=== PATIENT | female | born 1935 | race Caucasian/White ===

== ENCOUNTER 2024-06-14 18:17 | Inpatient (IN) | payer MEDICARE, SELFPAY ==
[2024-06-14 19:22] VITALS: BMI 17.0
[2024-06-14 19:29] VITALS: BP 181/85; PULSE 84; RESP 15; TEMP 36.9; O2SAT 98
--- NOTE | 2024-06-14 19:44 | NURSING ---
per patient no known allergies. Patient presents as alert to person/place/time/situation. Code status discussed with second nurse present. Educated on different code status orders. Patient requests code status DNRCC.
--- NOTE | 2024-06-14 19:50 | NURSING ---
Patient unable to recall vaccinations, would like to receive flu vaccine but I can't remember if I got it this year or not, my and I have been so sick. Patient expresses that she lives at home with her spouse that is worse off then me, they say we need to go to a home. Patient expresses patient and spouse experiencing difficulty taking care of ourselves at home. Patient notified that social work to be notified of her concerns, patient expresses thanks, states we don't know what to do to get help with that. Confidential voicemail left for social service coordinator regarding patient concern. Nursing communication in place for PCP to be contacted for vaccination records.
--- NOTE | 2024-06-14 20:53 | HP.PCM_ITS ---
HPI - General General Date of Admission: 06/14/24 Date of Service: 06/15/24 Chief Complaint: Here for rehabilitation. HPI Narrative KATELYN RYDER, is a 88 Female who presents with followin06/11/2024 Admit to [facility]. CT showed right pelvis fracture, sacral ala fracture. At baseline, walks with walker, right hip pain after fall. Able to walk through triage. No head injury, no LOC. 06/12/2024 Orthopedics recommended WBAT, no surgery. Pain control, dischage to SNF. PT/OT for SNF. 06/14/2024 Replace Vitamin D. Treat E. Coli UTI with Keflex. 06/14/2024 Admit to TCU with debility, here for rehabilitation, strengthening, prior to discharge home alone. Resident confused. [facility] Medical History (Updated 06/14/24 @ 20:[address] Nakul Chow MD) Essential (primary) hypertension Neuropathy Parkinson disease Neurofibromatosis Vitamin D deficiency Urinary tract infection Sacral fracture Pelvis fracture, right Debility Home Medications ?Medication ?Instructions ?Recorded ?Last Taken ?Type acetaminophen 325 mg capsule 650 mg PO Q6H PRN pain 1- 4 06/14/24 Unknown History amantadine HCl 100 mg capsule 100 mg PO BID Parkinsons 06/14/24 Unknown History carbidopa 25 mg-levodopa 100 mg 2.5 tab PO 0700,1100,1 500,1900 06/14/24 Unknown History tablet Parkinsons carbidopa ER 50 mg-levodopa 200 mg 1 tab PO QHS Praveen sons 06/14/24 Unknown History tablet,extended release cephalexin 250 mg capsule 250 mg PO Q12H Antibiotic Unknown History cholecalciferol (vitamin D3) 1,250 1,250 mcg PO QWEEK Supplement 06/14/24 Unknown History mcg (50,000 unit) capsule losartan 25 mg tablet 25 mg PO DAILY BP 06/14/24 U nknown History magnesium hydroxide 400 mg/5 mL 30 ml PO DAILY Supplem ent 06/14/24 Unknown History oral suspension oxycodone 5 mg tablet 5 mg PO Q4H PRN Pain 5-10 Unknown History polyethylene glycol 3350 17 17 g PO DAILY Constipation 06/14/24 Unknown History gram/dose oral powder (Miralax) Allergy/AdvReac Type Severity Reaction Status Date / Time No Known Allergies Allergy Verified 06/14/24 19:44 Surgical History (Updated 06/14/24 @ 20:[address] Nakul Chow MD) History of open reduction and internal fixation (ORIF) procedure Social History (Updated 06/14/24 @ 20:[address] Nakul Chow MD) household members: none Smoking Status: Never smoker alcohol intake: never substance use type: does not use ROS Constitutional Constitutional: Reports weakness; Denies chills, fever(s) or weight gain ENT HEENT: Denies headache(s), nasal congestion or nasal discharge Cardiovascular Cardiovascular: Denies chest pain or palpitations Respiratory/Chest Respiratory/Chest: Denies cough, excessive phlegm production or shortness of breath with exertion Gastrointestinal Gastrointestinal: Denies abdominal pain, nausea or vomiting Genitourinary Genitourinary: Denies dysuria Musculoskeletal Musculoskeletal: Denies joint pain or joint swelling Integumentary Integumentary: Denies rash or wounds Neurologic Neurologic: Denies focal weakness, numbness or tingling Psychiatric Psychiatric: Denies anxiety, auditory hallucinations, depression, homicidal ideation or suicidal ideation Vital Signs Vital Signs Vital Signs: 06/14/24 19:29 Temperature 98.5 F Temperature Source Temporal Pulse Rate 84 Respiratory Rate 15 Blood Pressure 181/85 H Blood Pressure Mean 117 Blood Pressure Source Monitor Blood Pressure Position Semi-Fowlers Blood Pressure Location Left Arm Pulse Ox 98 Oxygen Delivery Method Room Air Physical Exam Const alert General Appearance: cooperative HEENT normocephalic Eyes PERRL and EOMs intact bilaterally Neck supple, no JVD and no carotid bruits Resp normal respiratory effort, normal air movement and clear to auscultation bilaterally Cardio regular rate and regular rhythm GI normal to inspection, nondistended, normoactive bowel sounds, non-tender and non-distended Extremity normal capillary refill General Extremity: Negative for edema Skin no rashes or lesions noted General Skin Exam: no breakdown Psych affect normal Appearance: appropriate Results Lab / Micro Data 06/15/24 05:20 06/15/24 05:20 Assessment & Plan Assessment/Plan (1) Debility: (2) Pelvis fracture, right: (3) Sacral fracture: (4) Urinary tract infection: (5) Vitamin D deficiency: (6) Neurofibromatosis: (7) Parkinson disease: (8) Neuropathy: (9) Essential (primary) hypertension: PLAN: Plan 88 year old female with below past medical history hospitalized for right pelvis fracture, sacral ala fracture, treated non-surgically, complicated by E. Coli UTI, Vitamin D deficiency, admitted to TCU with debility, here for rehabilitation, strengthening, prior to discharge home alone. * Debility - PT/OT. * Cognition - ST. * Pain - Tylenol 1000mg q8, Oxycodone 5mg q4 prn pain (5-10). * Bowel - Miralax 17gm daily, senna/colace 1 tablet bid, MOM 30mL daily thru 06/18/2024. * Adult immunization - Administer pneumonia vaccine, covid vaccine, flu vaccine as appropriate. * DVT prophylaxis - Lovenox 30mg sc daily. * Parkinson Disease - Amantadine 100mg bid, Sinemet 25/100mg 2.5 tablets 4x/day, Sinemet 50/200mg 1 tablet qhs. Resident confused, consider Lewy body disease. * E. Coli UTI - Keflex 250mg po q12 thru 06/21/2024. * Vitamin D deficiency - D 1.25mg per week thru 07/31/2024. * Hypertension - Losartan 25mg daily.
[2024-06-14] MEDS: CARBIDOPA/LEVODOPA CR 50/200 Tablet PO (21:38)
[2024-06-14] MEDS: Cephalexin 250 MG Capsule PO (21:38)
[2024-06-14] MEDS: Amantadine 100 MG Capsule PO (21:38)
[2024-06-14] MEDS: oxyCODONE 5 MG Tablet PO (21:38)
[2024-06-14 21:40] VITALS: BP 200/104
--- NOTE | 2024-06-14 21:46 | NURSING ---
Addendum entered by Shirley Rocha 06/15/24 00:13: 2330 BP recheck 150/80 heart rate 90. Provider notified and okay with current BP, no new orders at this time. Original Note: Patient's BP 190/101 in the right arm, automatic cuff, left arm 205/106 automatic cuff. Manual BP in left arm 200/104, pulse 88. Patient is asymptomatic. Dr. Chow notified via phone. New order to give 100mg losartan now and change daily dose from 25mg to 100mg daily. Recheck BP in one hour. TIFFANY.
[2024-06-14] MEDS: Losartan Potassium 100 MG Tablet PO (22:27)
[2024-06-14] MEDS: Acetaminophen 500 MG Tablet 1000 MG PO (22:29)
[2024-06-14 23:30] VITALS: BP 150/80; PULSE 90
[2024-06-15] MEDS: Carbidopa/Levodopa 25/100 Tablet PO ×4 (06:15→18:28)
[2024-06-15] MEDS: Acetaminophen 500 MG Tablet 1000 MG PO ×3 (06:15→22:18)
[2024-06-15 06:20] VITALS: BP 138/54; PULSE 87
[2024-06-15 07:29] LABS: Absolute Lymphocyte Count 0.97 X10^3/uL (0.83-4.51); Absolute Neutrophil Count 4.8 X10^3/uL (2.0-7.7); Basophil# 0.02 X10^3/uL; Basophil% 0.3 % (0-1); Eosinophil# 0.09 X10^3/uL; Eosinophils% 1.3 % (0-5); Hematocrit 39.1 % (37-47); Hemoglobin 12.5 g/dL (12.0-15.0); Lymphocyte # 0.97 X10^3/ul (0.83-4.51); Lymphocyte % 14.4 % (19-41); Mean Corpuscular Hgb 29.1 pg (27.0-32.0); Mean Corpuscular Volume 90.9 fL (81-99); Mean Platelet Vol. 10.6 fl (6.2-12.0); Monocyte# 0.81 X10^3/uL; NRBC Flagged by Analyzer 0 % (0-5); Neutrophil # 4.81 X10^3/uL (2.7-7.7); Neutrophil % 71.4 % (47-70); Platelet Count 198 K/mm3 (150-450); RBC Distribution Width CV 13.9 % (11.6-14.6); RBC Distribution Width SD 46.2 fl (35.1-43.9); White Blood Count 6.7 K/mm3 (4.4-11.0)
[2024-06-15 08:01] LABS: Anion Gap 6 (5-15); BUN 24 mg/dL (7-18); BUN/Creat Ratio 35.2 RATIO (10-20); Calcium,Total 8.9 mg/dL (8.5-10.1); Chloride 106 mmol/L (98-107); Creatinine, Serum 0.68 mg/dL (0.55-1.02); EST Glomerular Filtration Rate 87 mL/min (>60); Est Glom Filt Rate - Afr Amer 105 mL/min (>60); Glucose 83 mg/dL (74-106); Potassium 4.2 mmol/L (3.5-5.1); Sodium Level 138 mmol/L (136-145)
[2024-06-15 09:26] VITALS: BP 126/62; PULSE 81; RESP 16; TEMP 36.8; O2SAT 96
[2024-06-15] MEDS: Amantadine 100 MG Capsule PO ×2 (09:26→22:18)
[2024-06-15] MEDS: Losartan Potassium 100 MG Tablet PO (09:27)
[2024-06-15] MEDS: Cephalexin 250 MG Capsule PO ×2 (09:27→22:17)
[2024-06-15] MEDS: Polyethylene Glycol 3350 17 GM PACKET PO (09:27)
[2024-06-15] MEDS: Senna/Docusate Sodium 1 Tablet PO ×2 (09:27→22:17)
[2024-06-15] MEDS: Tuberculin,Purif.prot.deriv. 50 TU/ML Vial 0.1 ML ID (12:26)
[2024-06-15] MEDS: oxyCODONE 5 MG Tablet PO (13:33)
--- NOTE | 2024-06-15 14:14 | PHA.CONS_ITS ---
Documented by User: Kalpesh Carmona 06/15/24 14:24 TCU RX Drug Regimen Review Subjective/Objective Subjective/Objective Subjective: TCU admission note. 88 year old female with below past medical history hospitalized for right pelvis fracture, sacral ala fracture, treated non-surgically, complicated by E. Coli UTI, Vitamin D deficiency, admitted to TCU with debility, here for rehabilitation, strengthening, prior to discharge home alone. Objective: Allergies No Known Allergies Allergy (Verified 06/14/24 19:44) Current Medications Generic Name Dose Route Start Last Admin Trade Name Freq PRN Reason Stop Dose Admin Acetaminophen 1,000 mg 06/14/24 22:00 06/15/24 13:33 Acetaminophen 500 Mg Tablet PO 1,000 mg Q8 NAREN Administration Amantadine HCl 100 mg 06/14/24 22:00 06/15/24 09:26 Amantadine 100 Mg Capsule PO 100 mg BID NAREN Administration Carbidopa/Levodopa 1 tablet 06/14/24 22:00 06/14/24 21:38 Carbidopa/Levodopa Cr 50/200 Tablet PO 1 tablet QHS NAREN Administration Carbidopa/Levodopa 2.5 tablet 06/15/24 07:00 06/15/24 11:56 Carbidopa/Levodopa 25/100 Tablet PO 2.5 tablet 0700,1100,1500,1900 NAREN Administration Cephalexin 250 mg 06/14/24 22:00 06/15/24 09:27 Cephalexin 250 Mg Capsule PO 06/21/24 22:01 250 mg Q12 NAREN Administration Ergocalciferol 1.25 mg 06/19/24 19:02 Ergocalciferol 1.25 Mg (50, 000 Unit) Capsule PO 07/31/24 19:03 MO NAREN Losartan Potassium 100 mg 06/14/24 22:00 06/15/24 09:27 Losartan Potassium 100 Mg Tablet PO 100 mg DAILY NAREN Administration Protocol Magnesium Hydroxide 30 ml 06/15/24 10:00 06/15/24 09:27 Magnesium Hydroxide 30 Ml Udc PO 06/18/24 10:01 Not Given DAILY NAREN Oxycodone HCl 5 mg 06/14/24 19:02 06/15/24 13:33 Oxycodone 5 Mg Tablet PO 5 mg Q4H PRN Administration Pain 5-10 Polyethylene Glycol 17 gm 06/15/24 10:00 06/15/24 09:27 Polyethylene Glycol 3350 17 Gm Packet PO 17 gm DAILY NAREN Administration Senna/Docusate Sodium 1 tablet 06/14/24 22:00 06/15/24 09:27 Senna/Docusate Sodium 1 Tablet PO 1 tablet BID NAREN Administration Sodium Chloride 10 - 40 ml 06/14/24 19:46 0.9% Saline Lock 10 Ml Syringe IV UD PRN SALINE FLUSH Tuberculin PPD 0.1 ml 06/22/24 10:00 Tuberculin,Purif.Prot.Deriv. 50 Tu/Ml Vial ID 06/22/24 10:01 X1 ONE Problem List Essential (primary) hypertension (Acute) Neuropathy (Acute) Parkinson disease (Acute) Neurofibromatosis (Acute) Vitamin D deficiency (Acute) Urinary tract infection (Acute) Sacral fracture (Acute) Pelvis fracture, right (Acute) Debility (Acute) Vital Signs Temp Pulse Resp BP Pulse Ox O2 Del Method 98.2 F 81 16 126/62 H 96 Room Air 06/15/24 09:26 06/15/24 09:26 06/15/24 09:26 06/15/24 09:26 06/15/24 09:26 06/15/24 09:26 Oxygen Delivery Method Room Air Weight: 53.887 kg Sodium 138 mmol/L (136-145) 06/15/24 05:20 Potassium 4.2 mmol/L (3.5-5.1) 06/15/24 05:20 Chloride 106 mmol/L (98-107) 06/15/24 05:20 Carbon Dioxide 26.0 mmol/L (21.0-32.0) 06/15/24 05:20 Anion Gap 6 (5-15) 06/15/24 05:20 BUN 24 mg/dL (7-18) H 06/15/24 05:20 Creatinine 0.68 mg/dL (0.55-1.02) 06/15/24 05:20 Est GFR (MDRD) Af Amer 105 mL/min (>60) 06/15/24 05:20 Est GFR (MDRD) Non-Af 87 mL/min (>60) 06/15/24 05:20 BUN/Creatinine Ratio 35.2 RATIO (10-20) H 06/15/24 05:20 Glucose 83 mg/dL (74-106) 06/15/24 05:20 Assessment/Plan: 1. Pain: acetaminophen 1000 mg PO Q8H, oxycodone 5 mg PO Q4H PRN pain (5-10). The patient has used 2 doses of PRN oxycodone so far this admission. Please con tinue to monitor pain levels, PRN medication usage, LFTs (no recent LFTs available), for constipation, respiratory depression, dizziness/drowsiness, syncope/ataxia/falls. 2. Bowel: polyethylene glycol 17 grams PO daily, senna/docusate 1 tablet PO BID magnesium hydroxide 30 mL PO daily through 06/18/24. Please continue to monitor for bowel movements (last BM on 06/15/24), constipation, and diarrhea. 3. Parkinsons disease: amantadine 100 mg PO BID, sinemet 25/100 2.5 tablets PO 4x/day, sinemet 50/200 1 tablet PO QHS. Please continue to monitor movements, for s/s of orthostasis, edema, dry mouth, dizziness, and falling. 4. E coli UTI: cephalexin 250 mg PO Q12 through 06/21/24. Please continue to monitor for s/s of a UTI, WBC counts (WBC = 6.7 K/mm3 on 06/15/24), and fever (last temp = 98.2 F on 06/15/24), and for diarrhea. 5. Hypertension: losartan 100 mg PO daily. Please continue to monitor blood pressures (recent range = 126-200/54-104 mmHg), renal function (creatinine = 0.68 mg/dL with creatinine clearance ~ 105 mL/min on 06/15/24), potassium levels (K = 4.2 mmol/L on 06/15/24), sodium levels (Na = 138 mmol/L on 06/15/24). 6. Vitamin D deficiency: ergocalciferol 1.25 mg PO weekly through 07/31/24. Please continue to monitor for s/s of vitamin D deficiency as well as vitamin D levels (no recent vitamin D levels documented). Assessment/Plan for indications treated with psychotropic medications: NA Medical chart and medication regimen reviewed. The following medication irregularities or issues were identified: NA Date Date of Note: 06/15/24 Documented by User: Dr. Nakul Chow MD 06/15/24 14:24 TCU RX Drug Regimen Review Provider Comments Provider responsibility Provider Comments to Recommendations by Pharmacy Agree
--- NOTE | 2024-06-15 16:18 | CASEMGMT ---
Social Work SW met with patient to complete initial assessment. Introduced self and role. Verified/updated contacts. Patient confirmed DNR-CC as code status. SW requested family provide copies of pt's advanced directives. Pt states HCPOA is son, Austin. SW educated to [employer] insurance with NRD 2/3 and continued stay is not guaranteed with each review. Pt shared her is recovering from a broken hip, has multiple falls and son stays overnight to assist . SW inquired about safety for pt and to be living at home. Pt aware it is not safe and would like LTC. Pt states they cannot afford [place]. SW to assist and offered to contact son to coordinate. Pt agreeable. SW will continue to follow for DC planning assistance. - SW left VM with son. Will continue to follow. Joan Martinez HARP MAKER MARBLE INSTALLATION HELPER
[2024-06-15] MEDS: CARBIDOPA/LEVODOPA CR 50/200 Tablet PO (22:18)
[2024-06-16] MEDS: Carbidopa/Levodopa 25/100 Tablet PO ×4 (06:11→18:57)
[2024-06-16] MEDS: Acetaminophen 500 MG Tablet 1000 MG PO ×3 (06:11→21:02)
[2024-06-16 08:39] VITALS: BP 151/65; PULSE 87; RESP 16; TEMP 37.3; O2SAT 96
[2024-06-16] MEDS: Losartan Potassium 100 MG Tablet PO (08:42)
[2024-06-16] MEDS: Cephalexin 250 MG Capsule PO ×2 (08:42→21:02)
[2024-06-16] MEDS: Senna/Docusate Sodium 1 Tablet PO (08:43)
[2024-06-16] MEDS: Polyethylene Glycol 3350 17 GM PACKET PO (08:43)
[2024-06-16] MEDS: Amantadine 100 MG Capsule PO ×2 (08:43→21:02)
--- NOTE | 2024-06-16 12:42 | NURSING ---
Training Specialist Note; Activity Asset: Eileen Hess is independent in her choice of daily activities w/reminders. She has word puzzles, magazines and will watch tv in her room. Her family will visit and she welcomes visits from the marketing communications assistant and nursing home social worker. Staff will encourage social activities, remind her of weekly activities and respect her right to say no.
[2024-06-16] MEDS: CARBIDOPA/LEVODOPA CR 50/200 Tablet PO (21:02)
[2024-06-17] VITALS (8 sets, daily range): BP systolic 143–176; BP diastolic 71–92; PULSE 68–81; RESP 16–17; TEMP 36.9; O2SAT 97–100
[2024-06-17] MEDS: Carbidopa/Levodopa 25/100 Tablet PO ×4 (06:37→18:22)
[2024-06-17] MEDS: Acetaminophen 500 MG Tablet 1000 MG PO ×3 (06:39→21:30)
[2024-06-17] MEDS: Amantadine 100 MG Capsule PO ×2 (08:00→21:26)
[2024-06-17] MEDS: Senna/Docusate Sodium 1 Tablet PO ×2 (08:00→21:26)
[2024-06-17] MEDS: Polyethylene Glycol 3350 17 GM PACKET PO (08:00)
[2024-06-17] MEDS: Losartan Potassium 100 MG Tablet PO (08:01)
[2024-06-17] MEDS: Cephalexin 250 MG Capsule PO ×2 (08:01→21:30)
--- NOTE | 2024-06-17 11:20 | NURSING ---
DR LINARES UPDATED ON ELEVATED BP'S NEW ORDER METOPROLOL 25MG BID
[2024-06-17] MEDS: Metoprolol Tartrate 25 MG Tablet PO ×2 (11:54→21:30)
[2024-06-17] MEDS: CARBIDOPA/LEVODOPA CR 50/200 Tablet PO (21:30)
[2024-06-18] MEDS: Carbidopa/Levodopa 25/100 Tablet PO ×4 (06:09→18:40)
[2024-06-18] MEDS: Acetaminophen 500 MG Tablet 1000 MG PO ×3 (06:09→20:54)
[2024-06-18 06:22] VITALS: PULSE 71; RESP 18; O2SAT 98
[2024-06-18] MEDS: Losartan Potassium 100 MG Tablet PO (10:04)
[2024-06-18] MEDS: Senna/Docusate Sodium 1 Tablet PO ×2 (10:04→20:55)
[2024-06-18] MEDS: Polyethylene Glycol 3350 17 GM PACKET PO (10:04)
[2024-06-18] MEDS: Cephalexin 250 MG Capsule PO ×2 (10:04→20:54)
[2024-06-18] MEDS: Menthol/Lanolin/Calamine/Znox 113 GM Tube 1 APPLIC TOPICAL ×2 (10:04→21:02)
[2024-06-18] MEDS: Amantadine 100 MG Capsule PO ×2 (10:04→20:55)
[2024-06-18 10:05] VITALS: PULSE 71
[2024-06-18] MEDS: Metoprolol Tartrate 25 MG Tablet PO ×2 (10:05→20:56)
[2024-06-18 11:16] VITALS: BP 119/70; PULSE 71; RESP 16; TEMP 36.7; O2SAT 99
[2024-06-18 13:14] VITALS: BP 190/95
[2024-06-18 20:56] VITALS: BP 146/69; PULSE 73
[2024-06-18] MEDS: CARBIDOPA/LEVODOPA CR 50/200 Tablet PO (20:56)
[2024-06-19] MEDS: Carbidopa/Levodopa 25/100 Tablet PO ×4 (06:19→18:15)
[2024-06-19] MEDS: Acetaminophen 500 MG Tablet 1000 MG PO ×3 (06:19→20:43)
[2024-06-19 08:03] VITALS: BP 155/77; PULSE 66; RESP 16; TEMP 36.4; O2SAT 95
[2024-06-19 08:05] VITALS: PULSE 66
[2024-06-19] MEDS: Metoprolol Tartrate 25 MG Tablet PO ×2 (08:05→20:42)
[2024-06-19] MEDS: Losartan Potassium 100 MG Tablet PO (08:06)
[2024-06-19] MEDS: Amantadine 100 MG Capsule PO ×2 (08:06→20:43)
[2024-06-19] MEDS: Cephalexin 250 MG Capsule PO ×2 (08:06→20:42)
[2024-06-19] MEDS: Senna/Docusate Sodium 1 Tablet PO ×2 (08:06→20:42)
[2024-06-19] MEDS: Polyethylene Glycol 3350 17 GM PACKET PO (08:06)
[2024-06-19] MEDS: Menthol/Lanolin/Calamine/Znox 113 GM Tube 1 APPLIC TOPICAL ×2 (08:16→20:49)
[2024-06-19 10:00] VITALS: PULSE 89; RESP 16; O2SAT 98
[2024-06-19] MEDS: oxyCODONE 5 MG Tablet PO (11:01)
--- NOTE | 2024-06-19 11:18 | NURSING ---
MESSAGE LEFT WITH PT PCP REGARDING INFLUENZA VACCINE DATES, AWAITING RETURN CALL.
--- NOTE | 2024-06-19 12:04 | NURSING ---
Offered covid vaccine, VIS provided. Resident refuses at this time.
[2024-06-19] MEDS: Ergocalciferol 1.25 MG (50, 000 UNIT) Capsule PO (18:15)
[2024-06-19] MEDS: CARBIDOPA/LEVODOPA CR 50/200 Tablet PO (20:41)
[2024-06-19 20:42] VITALS: BP 170/90; PULSE 72
[2024-06-19 20:46] VITALS: BP 170/90; PULSE 72
[2024-06-20] MEDS: Carbidopa/Levodopa 25/100 Tablet PO ×4 (06:45→18:22)
[2024-06-20] MEDS: Acetaminophen 500 MG Tablet 1000 MG PO ×3 (06:45→20:27)
[2024-06-20] MEDS: oxyCODONE 5 MG Tablet PO (06:51)
[2024-06-20 08:08] VITALS: BP 163/75; PULSE 68; RESP 18; TEMP 36.1; O2SAT 97
[2024-06-20] MEDS: Losartan Potassium 100 MG Tablet PO (08:08)
[2024-06-20] MEDS: Polyethylene Glycol 3350 17 GM PACKET PO (08:08)
[2024-06-20] MEDS: Senna/Docusate Sodium 1 Tablet PO ×2 (08:08→20:26)
[2024-06-20] MEDS: Metoprolol Tartrate 25 MG Tablet PO ×2 (08:08→20:26)
[2024-06-20] MEDS: Amantadine 100 MG Capsule PO ×2 (08:08→20:27)
[2024-06-20] MEDS: Cephalexin 250 MG Capsule PO ×2 (08:08→20:25)
[2024-06-20] MEDS: Menthol/Lanolin/Calamine/Znox 113 GM Tube 1 APPLIC TOPICAL ×2 (08:09→20:30)
[2024-06-20 10:00] VITALS: BMI 16.9
--- NOTE | 2024-06-20 16:17 | CASEMGMT ---
Social Work SW completed BIMS (01/29) and PHQ-2 () for MDS assessment. Joan Martinez HEDDLER TIER BARK PEELER
[2024-06-20 20:26] VITALS: BP 125/54; PULSE 65
[2024-06-20] MEDS: CARBIDOPA/LEVODOPA CR 50/200 Tablet PO (20:26)
[2024-06-20 20:33] VITALS: PULSE 65; RESP 16
[2024-06-21] MEDS: Acetaminophen 500 MG Tablet 1000 MG PO ×3 (06:39→21:11)
[2024-06-21] MEDS: Carbidopa/Levodopa 25/100 Tablet PO ×4 (06:39→18:18)
--- NOTE | 2024-06-21 08:07 | NURSING ---
Hotel Housekeeper Note; MDS for 06/21/2024 Complete
[2024-06-21 09:06] VITALS: BP 131/62; PULSE 65; RESP 17; TEMP 36.6; O2SAT 95
[2024-06-21] MEDS: Cephalexin 250 MG Capsule PO ×2 (09:09→21:11)
[2024-06-21] MEDS: Losartan Potassium 100 MG Tablet PO (09:09)
[2024-06-21 09:10] VITALS: PULSE 65
[2024-06-21] MEDS: Polyethylene Glycol 3350 17 GM PACKET PO (09:10)
[2024-06-21] MEDS: Metoprolol Tartrate 25 MG Tablet PO ×2 (09:10→21:11)
[2024-06-21] MEDS: Amantadine 100 MG Capsule PO ×2 (09:10→21:11)
[2024-06-21] MEDS: Menthol/Lanolin/Calamine/Znox 113 GM Tube 1 APPLIC TOPICAL ×2 (10:22→21:15)
--- NOTE | 2024-06-21 12:24 | CASEMGMT ---
Addendum entered by Joan Martinez 06/21/24 13:21: Advanced directives brought by the son and placed in chart. Original Note: Social Work SW met with patient for care plan meeting. VM left with son and dtr to participate. [place] through the meeting, the DIL did return phone call and staff provided dtr with updates with PT/OT/ST/SN. Explained pt is x1-2 assist with tasks. Offered family therapy training. SW educated to [facility] insurance with NRD 06/23 and continued stay is not guaranteed. Provided pt with written communication on insurance process and copay coverage during stay. SW verified contact information for son. Requested family provided copies of advanced directives. Inquired about plans for SNF at [place] and for to move into SNF with pt. MARLON explained the pt and will move into [facility], and son, Manan, is signing contracts there today. ALLEY noted this worker contacted son upon admission and has not received a return call, and was unaware of the plan for D[place]. ALLEY educated this worker's role is to assist with DC planning and to the referral process. MARLON apologized as she was under the assumption Dora had contacted this worker. ALLEY denied, but will contact [facility] to coordinate DC. SW reiterated the insurance only provides a 3-day notice for DC date, and suggested to begin moving items into pt's apt to be ready for DC. MARLON confirmed. - ALLEY updated contact information in [employer]. Phoned Merlin, Records Associate at [facility]. Discussed pt discharging to [place]. Merlin confirmed and apologized for miscommunication as he was under the impression the family was in contact with this worker. ALLEY denied and requested any onsite or referral information be discussed with this worker prior. Merlin agreed and exchanged contact information. Merlin agreed to clinical information. SW to send via secure email and updated him to insurance process and notice. Merlin stated family is arranging furniture to be delivered next week and will start moving in other items. ALLEY appreciative. Clinical information sent. Will continue to follow. Joan Martinez, RADHA PEREZW
[2024-06-21] MEDS: FLU VACCINE **HIGH DOSE** TV 24-25 180 MCG/0.5 ML SYRINGE IM (16:43)
[2024-06-21 21:11] VITALS: BP 149/76; PULSE 67
[2024-06-21] MEDS: Senna/Docusate Sodium 1 Tablet PO (21:11)
[2024-06-21] MEDS: CARBIDOPA/LEVODOPA CR 50/200 Tablet PO (21:11)
[2024-06-22 06:24] LABS: Absolute Lymphocyte Count 1.17 X10^3/uL (0.83-4.51); Absolute Neutrophil Count 4.3 X10^3/uL (2.0-7.7); Basophil# 0.03 X10^3/uL; Basophil% 0.5 % (0-1); Eosinophils% 1.6 % (0-5); Hematocrit 40.6 % (37-47); Hemoglobin 13.2 g/dL (12.0-15.0); Lymphocyte # 1.17 X10^3/ul (0.83-4.51); Lymphocyte % 18.6 % (19-41); Mean Corp Hgb Conc 32.5 g/dL (32-36); Mean Corpuscular Hgb 29.6 pg (27.0-32.0); Mean Platelet Vol. 10.1 fl (6.2-12.0); Monocyte# 0.65 X10^3/uL; Monocyte% 10.3 % (0-10); NRBC Flagged by Analyzer 0 % (0-5); Neutrophil # 4.29 X10^3/uL (2.7-7.7); Platelet Count 295 K/mm3 (150-450); RBC Distribution Width CV 13.8 % (11.6-14.6); RBC Distribution Width SD 45.9 fl (35.1-43.9); Red Blood Count 4.46 M/mm3 (4.2-5.4); White Blood Count 6.3 K/mm3 (4.4-11.0)
[2024-06-22 06:53] LABS: Anion Gap 5 (5-15); BUN 28 mg/dL (7-18); BUN/Creat Ratio 42.9 RATIO (10-20); Chloride 105 mmol/L (98-107); Creatinine, Serum 0.65 mg/dL (0.55-1.02); EST Glomerular Filtration Rate 91 mL/min (>60); Est Glom Filt Rate - Afr Amer 110 mL/min (>60); Estimated Creatinine Clearance 41.76 ml/min; Glucose 79 mg/dL (74-106); Potassium 4.1 mmol/L (3.5-5.1); Sodium Level 138 mmol/L (136-145)
[2024-06-22] MEDS: Acetaminophen 500 MG Tablet 1000 MG PO ×3 (06:54→20:58)
[2024-06-22] MEDS: Carbidopa/Levodopa 25/100 Tablet PO ×4 (06:54→19:13)
[2024-06-22 08:35] VITALS: PULSE 85
[2024-06-22] MEDS: Metoprolol Tartrate 25 MG Tablet PO ×2 (08:35→20:57)
[2024-06-22] MEDS: Menthol/Lanolin/Calamine/Znox 113 GM Tube 1 APPLIC TOPICAL ×2 (08:35→20:57)
[2024-06-22] MEDS: Losartan Potassium 100 MG Tablet PO (08:35)
[2024-06-22] MEDS: Amantadine 100 MG Capsule PO ×2 (08:36→20:58)
[2024-06-22 09:13] VITALS: BP 153/76; PULSE 85; RESP 15; TEMP 36.6; O2SAT 96
[2024-06-22] MEDS: Tuberculin,Purif.prot.deriv. 50 TU/ML Vial 0.1 ML ID (12:13)
[2024-06-22 20:14] VITALS: PULSE 69; RESP 18; O2SAT 100
[2024-06-22 20:57] VITALS: BP 157/77; PULSE 67
[2024-06-22] MEDS: CARBIDOPA/LEVODOPA CR 50/200 Tablet PO (20:57)
[2024-06-22] MEDS: Senna/Docusate Sodium 1 Tablet PO (20:58)
--- NOTE | 2024-06-23 05:40 | NURSING ---
LBM 06/18, poor appetite, refusing meals at times. Lack of motivation observed AEB verbal cues to complete tasks, minimal participation with ADLS. EAx2 SPT transfers, EAx1-2 with bed mobility. Incontinent, extensive assist with personal hygiene and incontinence care.Flat affect. Recently refused anti-depressant according to MAR. A&Ox3, forgetful. Denies pain at this time. Written communication left for Dr Duran review this AM.
[2024-06-23 05:52] VITALS: PULSE 67; RESP 16; O2SAT 97
[2024-06-23] MEDS: Carbidopa/Levodopa 25/100 Tablet PO ×4 (06:06→18:25)
[2024-06-23] MEDS: Acetaminophen 500 MG Tablet 1000 MG PO ×3 (06:07→22:16)
[2024-06-23 08:32] VITALS: BP 134/71; PULSE 70; RESP 17; TEMP 36.9; O2SAT 97
[2024-06-23] MEDS: Menthol/Lanolin/Calamine/Znox 113 GM Tube 1 APPLIC TOPICAL ×2 (08:35→22:25)
[2024-06-23 08:36] VITALS: PULSE 70
[2024-06-23] MEDS: Metoprolol Tartrate 25 MG Tablet PO ×2 (08:36→22:15)
[2024-06-23] MEDS: Polyethylene Glycol 3350 17 GM PACKET PO (08:36)
[2024-06-23] MEDS: Amantadine 100 MG Capsule PO ×2 (08:36→22:15)
[2024-06-23] MEDS: Senna/Docusate Sodium 1 Tablet PO (08:36)
[2024-06-23] MEDS: Losartan Potassium 100 MG Tablet PO (08:36)
--- NOTE | 2024-06-23 09:00 | RAD_ITS ---
EXAM: XR Abdomen, 1 View CLINICAL INDICATION: TECHNIQUE: Frontal supine view of the abdomen/pelvis. COMPARISON: No relevant prior studies available. FINDINGS: GASTROINTESTINAL TRACT: Fecal retention in the colon consistent with constipation. No dilation. BONES/JOINTS: Unremarkable. No acute fracture. RAD/Abdomen Single View IMPRESSION: Fecal retention in the colon consistent with constipation. Reading Location: [facility]
[2024-06-23 22:15] VITALS: BP 168/86; PULSE 70
[2024-06-23] MEDS: CARBIDOPA/LEVODOPA CR 50/200 Tablet PO (22:16)
[2024-06-23] MEDS: Senna/Docusate Sodium 1 Tablet 2 TABLET PO (22:18)
[2024-06-24] MEDS: Carbidopa/Levodopa 25/100 Tablet PO ×4 (05:24→18:13)
[2024-06-24] MEDS: Acetaminophen 500 MG Tablet 1000 MG PO ×3 (05:24→20:04)
[2024-06-24 08:01] VITALS: PULSE 60
[2024-06-24] MEDS: Menthol/Lanolin/Calamine/Znox 113 GM Tube 1 APPLIC TOPICAL ×2 (08:01→20:03)
[2024-06-24] MEDS: Metoprolol Tartrate 25 MG Tablet PO ×2 (08:01→20:06)
[2024-06-24] MEDS: Losartan Potassium 100 MG Tablet PO (08:01)
[2024-06-24] MEDS: Amantadine 100 MG Capsule PO ×2 (08:01→20:05)
[2024-06-24] MEDS: Senna/Docusate Sodium 1 Tablet 2 TABLET PO ×2 (08:01→20:05)
[2024-06-24 10:11] VITALS: BP 145/81; PULSE 60; RESP 18; TEMP 36.5; O2SAT 98
[2024-06-24 20:06] VITALS: BP 123/69; PULSE 68
[2024-06-24] MEDS: CARBIDOPA/LEVODOPA CR 50/200 Tablet PO (20:06)
[2024-06-25] MEDS: Acetaminophen 500 MG Tablet 1000 MG PO ×3 (06:00→20:46)
[2024-06-25] MEDS: Carbidopa/Levodopa 25/100 Tablet PO ×4 (06:00→18:01)
[2024-06-25 08:02] VITALS: PULSE 67
[2024-06-25] MEDS: Menthol/Lanolin/Calamine/Znox 113 GM Tube 1 APPLIC TOPICAL ×2 (08:02→20:45)
[2024-06-25] MEDS: Metoprolol Tartrate 25 MG Tablet PO ×2 (08:02→20:45)
[2024-06-25] MEDS: Amantadine 100 MG Capsule PO ×2 (08:02→20:46)
[2024-06-25] MEDS: Senna/Docusate Sodium 1 Tablet 2 TABLET PO (08:02)
[2024-06-25] MEDS: Losartan Potassium 100 MG Tablet PO (08:02)
[2024-06-25] MEDS: Nystatin Powder 15gm Bottle 1 APPLIC TOPICAL ×2 (08:02→20:54)
[2024-06-25 09:49] VITALS: BP 150/75; PULSE 67; RESP 16; TEMP 36.4; O2SAT 99
[2024-06-25 20:45] VITALS: BP 143/72; PULSE 68
[2024-06-25] MEDS: CARBIDOPA/LEVODOPA CR 50/200 Tablet PO (20:46)
[2024-06-26] VITALS (7 sets, daily range): BP systolic 142–185; BP diastolic 67–90; PULSE 65–78; RESP 14–16; TEMP 36.3; O2SAT 98
[2024-06-26] MEDS: Acetaminophen 500 MG Tablet 1000 MG PO ×3 (06:14→22:11)
[2024-06-26] MEDS: Carbidopa/Levodopa 25/100 Tablet PO ×4 (06:14→18:18)
[2024-06-26] MEDS: Senna/Docusate Sodium 1 Tablet 2 TABLET PO (07:47)
[2024-06-26] MEDS: Amantadine 100 MG Capsule PO ×2 (07:47→22:11)
[2024-06-26] MEDS: Losartan Potassium 100 MG Tablet PO (07:47)
[2024-06-26] MEDS: Metoprolol Tartrate 25 MG Tablet PO ×2 (07:47→22:11)
[2024-06-26] MEDS: Nystatin Powder 15gm Bottle 1 APPLIC TOPICAL ×2 (07:48→22:11)
[2024-06-26] MEDS: Menthol/Lanolin/Calamine/Znox 113 GM Tube 1 APPLIC TOPICAL ×2 (07:50→22:11)
--- NOTE | 2024-06-26 09:50 | MDS.RN ---
Information for the MDS was obtained from review of the clinical record, interview of resident, staff, and direct observation of resident?s care.
[2024-06-26] MEDS: Ergocalciferol 1.25 MG (50, 000 UNIT) Capsule PO (18:18)
[2024-06-26] MEDS: CARBIDOPA/LEVODOPA CR 50/200 Tablet PO (22:11)
[2024-06-27] MEDS: Carbidopa/Levodopa 25/100 Tablet PO ×4 (06:20→18:28)
[2024-06-27] MEDS: Acetaminophen 500 MG Tablet 1000 MG PO ×3 (06:20→20:20)
[2024-06-27 06:38] VITALS: RESP 16
[2024-06-27] MEDS: Menthol/Lanolin/Calamine/Znox 113 GM Tube 1 APPLIC TOPICAL (09:09)
[2024-06-27 09:10] VITALS: BP 129/60; PULSE 63
[2024-06-27] MEDS: Nystatin Powder 15gm Bottle 1 APPLIC TOPICAL ×2 (09:10→20:21)
[2024-06-27] MEDS: Metoprolol Tartrate 25 MG Tablet PO ×2 (09:10→20:20)
[2024-06-27] MEDS: Losartan Potassium 100 MG Tablet PO (09:10)
[2024-06-27] MEDS: Amantadine 100 MG Capsule PO ×2 (09:11→20:21)
[2024-06-27 10:00] VITALS: BMI 16.7
--- NOTE | 2024-06-27 15:19 | NURSING ---
Updated by MICROMATIC HONE OPERATOR that resident complaining of dizziness. On assessment, resident describes the room spinning. She says it came on suddenly with a cold sweat. She reports this happens every few months for a few years. Was seen in ER first time it happened but they didn't find anything. No pain, no shortness of breath. VSS. Updated Dr. Chow, order for CBC and BMP.
[2024-06-27 16:00] VITALS: BP 151/74; PULSE 60; RESP 18; TEMP 36.7; O2SAT 99
[2024-06-27 16:54] LABS: Bedside Glucose 96 mg/dL (74-106)
[2024-06-27 18:10] LABS: Absolute Lymphocyte Count 1.01 X10^3/uL (0.83-4.51); Absolute Neutrophil Count 6.5 X10^3/uL (2.0-7.7); Basophil# 0.04 X10^3/uL; Basophil% 0.5 % (0-1); Eosinophil# 0.06 X10^3/uL; Eosinophils% 0.7 % (0-5); Hematocrit 41.4 % (37-47); Hemoglobin 13.4 g/dL (12.0-15.0); Lymphocyte # 1.01 X10^3/ul (0.83-4.51); Lymphocyte % 11.9 % (19-41); Mean Corp Hgb Conc 32.4 g/dL (32-36); Mean Corpuscular Hgb 29.5 pg (27.0-32.0); Mean Platelet Vol. 10.6 fl (6.2-12.0); Monocyte# 0.81 X10^3/uL; Monocyte% 9.5 % (0-10); NRBC Flagged by Analyzer 0 % (0-5); Neutrophil # 6.51 X10^3/uL (2.7-7.7); Neutrophil % 76.5 % (47-70); Platelet Count 337 K/mm3 (150-450); RBC Distribution Width CV 13.9 % (11.6-14.6); RBC Distribution Width SD 45.7 fl (35.1-43.9); Red Blood Count 4.55 M/mm3 (4.2-5.4); White Blood Count 8.5 K/mm3 (4.4-11.0)
[2024-06-27 18:41] LABS: Anion Gap 8 (5-15); BUN 25 mg/dL (7-18); Calcium,Total 9.2 mg/dL (8.5-10.1); Chloride 104 mmol/L (98-107); Creatinine, Serum 0.69 mg/dL (0.55-1.02); EST Glomerular Filtration Rate 85 mL/min (>60); Est Glom Filt Rate - Afr Amer 103 mL/min (>60); Estimated Creatinine Clearance 41.22 ml/min; Glucose 104 mg/dL (74-106); Sodium Level 137 mmol/L (136-145)
[2024-06-27] MEDS: CARBIDOPA/LEVODOPA CR 50/200 Tablet PO (20:19)
[2024-06-27] MEDS: Senna/Docusate Sodium 1 Tablet 2 TABLET PO (20:19)
[2024-06-27 20:20] VITALS: BP 171/79; PULSE 63
[2024-06-27 20:26] VITALS: BP 171/79; PULSE 63
[2024-06-28] MEDS: Acetaminophen 500 MG Tablet 1000 MG PO ×3 (06:21→21:32)
[2024-06-28] MEDS: Carbidopa/Levodopa 25/100 Tablet PO ×4 (06:21→19:23)
[2024-06-28] MEDS: Menthol/Lanolin/Calamine/Znox 113 GM Tube 1 APPLIC TOPICAL ×2 (07:57→21:30)
[2024-06-28] MEDS: Nystatin Powder 15gm Bottle 1 APPLIC TOPICAL ×2 (07:57→21:32)
[2024-06-28] MEDS: Amantadine 100 MG Capsule PO ×2 (07:58→21:32)
[2024-06-28 07:59] VITALS: BP 155/79; PULSE 104
[2024-06-28] MEDS: Losartan Potassium 100 MG Tablet PO (07:59)
[2024-06-28] MEDS: Metoprolol Tartrate 25 MG Tablet PO ×2 (07:59→21:30)
[2024-06-28 08:01] VITALS: BP 155/79; PULSE 77; RESP 15; TEMP 36.6; O2SAT 98
[2024-06-28 21:30] VITALS: BP 160/81; PULSE 73
[2024-06-28] MEDS: CARBIDOPA/LEVODOPA CR 50/200 Tablet PO (21:30)
[2024-06-28] MEDS: Senna/Docusate Sodium 1 Tablet 2 TABLET PO (21:31)
[2024-06-29 05:50] LABS: Absolute Lymphocyte Count 1.36 X10^3/uL (0.83-4.51); Absolute Neutrophil Count 3.8 X10^3/uL (2.0-7.7); Basophil# 0.02 X10^3/uL; Basophil% 0.3 % (0-1); Eosinophils% 1.7 % (0-5); Hematocrit 42.1 % (37-47); Hemoglobin 13.3 g/dL (12.0-15.0); Lymphocyte # 1.36 X10^3/ul (0.83-4.51); Lymphocyte % 22.9 % (19-41); Mean Corp Hgb Conc 31.6 g/dL (32-36); Mean Corpuscular Hgb 28.7 pg (27.0-32.0); Mean Corpuscular Volume 90.9 fL (81-99); Mean Platelet Vol. 10.4 fl (6.2-12.0); Monocyte# 0.65 X10^3/uL; NRBC Flagged by Analyzer 0 % (0-5); Neutrophil # 3.75 X10^3/uL (2.7-7.7); Neutrophil % 63.3 % (47-70); Platelet Count 284 K/mm3 (150-450); RBC Distribution Width CV 13.8 % (11.6-14.6); RBC Distribution Width SD 46.1 fl (35.1-43.9); Red Blood Count 4.63 M/mm3 (4.2-5.4); White Blood Count 5.9 K/mm3 (4.4-11.0)
[2024-06-29] MEDS: Carbidopa/Levodopa 25/100 Tablet PO ×4 (06:04→17:35)
[2024-06-29] MEDS: Acetaminophen 500 MG Tablet 1000 MG PO ×3 (06:05→20:44)
[2024-06-29 06:18] LABS: Anion Gap 6 (5-15); BUN 28 mg/dL (7-18); BUN/Creat Ratio 43.9 RATIO (10-20); Calcium,Total 8.9 mg/dL (8.5-10.1); Chloride 106 mmol/L (98-107); Creatinine, Serum 0.64 mg/dL (0.55-1.02); EST Glomerular Filtration Rate 94 mL/min (>60); Est Glom Filt Rate - Afr Amer 113 mL/min (>60); Estimated Creatinine Clearance 41.22 ml/min; Glucose 75 mg/dL (74-106); Potassium 4.3 mmol/L (3.5-5.1); Sodium Level 140 mmol/L (136-145)
[2024-06-29] MEDS: Menthol/Lanolin/Calamine/Znox 113 GM Tube 1 APPLIC TOPICAL ×2 (10:01→20:50)
[2024-06-29 10:02] VITALS: PULSE 82
[2024-06-29] MEDS: Polyethylene Glycol 3350 17 GM PACKET PO (10:02)
[2024-06-29] MEDS: Metoprolol Tartrate 25 MG Tablet PO ×2 (10:02→20:43)
[2024-06-29] MEDS: Senna/Docusate Sodium 1 Tablet 2 TABLET PO ×2 (10:03→20:43)
[2024-06-29] MEDS: Losartan Potassium 100 MG Tablet PO (10:03)
[2024-06-29] MEDS: Nystatin Powder 15gm Bottle 1 APPLIC TOPICAL ×2 (10:03→20:44)
[2024-06-29] MEDS: Amantadine 100 MG Capsule PO ×2 (10:04→20:43)
[2024-06-29 15:30] VITALS: BP 134/63; PULSE 60; RESP 14; TEMP 36.4; O2SAT 99
[2024-06-29 20:43] VITALS: BP 151/78; PULSE 70
[2024-06-29] MEDS: CARBIDOPA/LEVODOPA CR 50/200 Tablet PO (20:43)
[2024-06-30] MEDS: Acetaminophen 500 MG Tablet 1000 MG PO ×3 (05:35→21:25)
[2024-06-30] MEDS: Carbidopa/Levodopa 25/100 Tablet PO ×4 (05:35→18:18)
[2024-06-30 08:39] VITALS: BP 122/57; PULSE 65; RESP 16; TEMP 36.4; O2SAT 98
[2024-06-30 08:42] VITALS: PULSE 65
[2024-06-30] MEDS: Metoprolol Tartrate 25 MG Tablet PO ×2 (08:42→21:26)
[2024-06-30] MEDS: Losartan Potassium 100 MG Tablet PO (08:42)
[2024-06-30] MEDS: Polyethylene Glycol 3350 17 GM PACKET PO (08:42)
[2024-06-30] MEDS: Nystatin Powder 15gm Bottle 1 APPLIC TOPICAL ×2 (08:43→21:26)
[2024-06-30] MEDS: Senna/Docusate Sodium 1 Tablet 2 TABLET PO ×2 (08:43→21:25)
[2024-06-30] MEDS: Amantadine 100 MG Capsule PO ×2 (08:44→21:25)
[2024-06-30] MEDS: Menthol/Lanolin/Calamine/Znox 113 GM Tube 1 APPLIC TOPICAL ×2 (12:10→21:25)
--- NOTE | 2024-06-30 14:04 | CASEMGMT ---
Social Work SW left VM with son to discuss DC plans. Joan Martinez EQUIPMENT SPECIALIST THIRD MATE
[2024-06-30 21:00] VITALS: PULSE 62; RESP 16; O2SAT 96
[2024-06-30] MEDS: CARBIDOPA/LEVODOPA CR 50/200 Tablet PO (21:25)
[2024-06-30 21:26] VITALS: BP 179/84; PULSE 67
[2024-07-01] MEDS: Carbidopa/Levodopa 25/100 Tablet PO ×4 (06:11→19:48)
[2024-07-01] MEDS: Acetaminophen 500 MG Tablet 1000 MG PO ×3 (06:12→22:48)
[2024-07-01] MEDS: Magnesium Citrate 300 ML PO (06:19)
[2024-07-01 08:24] VITALS: BP 138/79; PULSE 69; RESP 17; TEMP 36.6; O2SAT 97
[2024-07-01] MEDS: Menthol/Lanolin/Calamine/Znox 113 GM Tube 1 APPLIC TOPICAL ×2 (08:28→22:51)
[2024-07-01 08:29] VITALS: PULSE 69
[2024-07-01] MEDS: Losartan Potassium 100 MG Tablet PO (08:29)
[2024-07-01] MEDS: Polyethylene Glycol 3350 17 GM PACKET PO (08:29)
[2024-07-01] MEDS: Metoprolol Tartrate 25 MG Tablet PO ×2 (08:29→22:48)
[2024-07-01] MEDS: Senna/Docusate Sodium 1 Tablet 2 TABLET PO ×2 (08:30→22:50)
[2024-07-01] MEDS: Amantadine 100 MG Capsule PO ×2 (08:30→22:49)
[2024-07-01] MEDS: Nystatin Powder 15gm Bottle 1 APPLIC TOPICAL ×2 (08:30→22:51)
[2024-07-01 22:47] VITALS: BP 156/76; PULSE 68
[2024-07-01 22:48] VITALS: PULSE 68
[2024-07-01] MEDS: CARBIDOPA/LEVODOPA CR 50/200 Tablet PO (22:50)
[2024-07-02] MEDS: Acetaminophen 500 MG Tablet 1000 MG PO ×3 (05:33→21:21)
[2024-07-02] MEDS: Carbidopa/Levodopa 25/100 Tablet PO ×4 (05:33→18:13)
[2024-07-02 08:27] VITALS: BP 137/62; PULSE 66; RESP 17; TEMP 36.8; O2SAT 97
[2024-07-02] MEDS: Menthol/Lanolin/Calamine/Znox 113 GM Tube 1 APPLIC TOPICAL ×2 (08:28→21:25)
[2024-07-02] MEDS: Losartan Potassium 100 MG Tablet PO (08:29)
[2024-07-02] MEDS: Nystatin Powder 15gm Bottle 1 APPLIC TOPICAL ×2 (08:29→21:24)
[2024-07-02 08:30] VITALS: PULSE 66
[2024-07-02] MEDS: Amantadine 100 MG Capsule PO ×2 (08:30→21:21)
[2024-07-02] MEDS: Metoprolol Tartrate 25 MG Tablet PO ×2 (08:30→21:22)
[2024-07-02] MEDS: Polyethylene Glycol 3350 17 GM PACKET PO (08:30)
[2024-07-02] MEDS: Senna/Docusate Sodium 1 Tablet 2 TABLET PO (08:30)
[2024-07-02 21:17] VITALS: BP 143/70; PULSE 68
[2024-07-02 21:22] VITALS: BP 143/70; PULSE 68
[2024-07-02] MEDS: CARBIDOPA/LEVODOPA CR 50/200 Tablet PO (21:22)
[2024-07-03] MEDS: Carbidopa/Levodopa 25/100 Tablet PO ×4 (06:06→18:14)
[2024-07-03] MEDS: Acetaminophen 500 MG Tablet 1000 MG PO ×3 (06:07→21:00)
--- NOTE | 2024-07-03 09:06 | CASEMGMT ---
Social Work ALLEY received return call from, son, Manan. Confirmed pt's moved to [place] on 06/30. ALLEY explained pt is making progress in therapy, i.e. two person to one person assist, and therapy would like to continue working with pt. ALLEY explained insurance update is 07/05, and offered to follow up with son after the update to discuss progress and possibly setting DC date. Son agreed and would like pt to continue to progress. ALLEY communicated with Merlin at [facility] on update. Joan Martinez HOME CARE AIDE LINE LOCATOR
[2024-07-03 09:45] VITALS: BP 146/73; PULSE 60; RESP 16; TEMP 36.6
[2024-07-03] MEDS: Menthol/Lanolin/Calamine/Znox 113 GM Tube 1 APPLIC TOPICAL ×2 (09:47→20:56)
[2024-07-03 09:49] VITALS: PULSE 60
[2024-07-03] MEDS: Senna/Docusate Sodium 1 Tablet 2 TABLET PO ×2 (09:49→20:58)
[2024-07-03] MEDS: Losartan Potassium 100 MG Tablet PO (09:49)
[2024-07-03] MEDS: Metoprolol Tartrate 25 MG Tablet PO ×2 (09:49→20:58)
[2024-07-03] MEDS: Polyethylene Glycol 3350 17 GM PACKET PO (09:49)
[2024-07-03] MEDS: Nystatin Powder 15gm Bottle 1 APPLIC TOPICAL ×2 (09:50→20:57)
[2024-07-03] MEDS: Amantadine 100 MG Capsule PO ×2 (09:50→20:59)
[2024-07-03] MEDS: Ergocalciferol 1.25 MG (50, 000 UNIT) Capsule PO (18:15)
[2024-07-03 20:58] VITALS: BP 147/73; PULSE 67
[2024-07-03] MEDS: CARBIDOPA/LEVODOPA CR 50/200 Tablet PO (20:59)
[2024-07-04] MEDS: Carbidopa/Levodopa 25/100 Tablet PO ×4 (05:57→17:54)
[2024-07-04] MEDS: Acetaminophen 500 MG Tablet 1000 MG PO ×3 (05:57→21:04)
[2024-07-04 09:27] VITALS: BP 146/68; PULSE 60
[2024-07-04] MEDS: Metoprolol Tartrate 25 MG Tablet PO ×2 (09:27→21:05)
[2024-07-04] MEDS: Nystatin Powder 15gm Bottle 1 APPLIC TOPICAL ×2 (09:27→21:04)
[2024-07-04] MEDS: Menthol/Lanolin/Calamine/Znox 113 GM Tube 1 APPLIC TOPICAL ×2 (09:27→21:06)
[2024-07-04] MEDS: Losartan Potassium 100 MG Tablet PO (09:27)
[2024-07-04] MEDS: Amantadine 100 MG Capsule PO ×2 (09:27→21:06)
--- NOTE | 2024-07-04 09:48 | NURSING ---
Per Pt had Loose Bowel Movement on 07/03/24 and refused to take senna and Miralax. Educated pt that last recorded Bowel movement was 07/01/24 pt still refused. Will continue to monitor.
[2024-07-04 10:00] VITALS: BMI 16.5
[2024-07-04 16:00] VITALS: BP 145/75; PULSE 58; RESP 14; TEMP 36.7; O2SAT 98
[2024-07-04 21:05] VITALS: BP 169/73; PULSE 60
[2024-07-04] MEDS: Senna/Docusate Sodium 1 Tablet 2 TABLET PO (21:05)
[2024-07-04] MEDS: CARBIDOPA/LEVODOPA CR 50/200 Tablet PO (21:06)
[2024-07-04 21:17] VITALS: PULSE 60; RESP 16; O2SAT 99
[2024-07-05] MEDS: Carbidopa/Levodopa 25/100 Tablet PO ×4 (06:03→17:15)
[2024-07-05] MEDS: Acetaminophen 500 MG Tablet 1000 MG PO ×3 (06:04→21:13)
[2024-07-05 06:20] VITALS: PULSE 67; RESP 18; O2SAT 98
[2024-07-05] MEDS: Nystatin Powder 15gm Bottle 1 APPLIC TOPICAL ×2 (10:08→21:16)
[2024-07-05] MEDS: Menthol/Lanolin/Calamine/Znox 113 GM Tube 1 APPLIC TOPICAL ×2 (10:08→21:16)
[2024-07-05 10:09] VITALS: BP 138/67; PULSE 62
[2024-07-05] MEDS: Losartan Potassium 100 MG Tablet PO (10:09)
[2024-07-05] MEDS: Metoprolol Tartrate 25 MG Tablet PO ×2 (10:09→21:16)
[2024-07-05] MEDS: Senna/Docusate Sodium 1 Tablet 2 TABLET PO ×2 (10:11→21:14)
[2024-07-05] MEDS: Polyethylene Glycol 3350 17 GM PACKET PO (10:12)
[2024-07-05] MEDS: Amantadine 100 MG Capsule PO ×2 (10:13→21:12)
[2024-07-05 10:21] VITALS: BP 138/67; PULSE 62; RESP 16; O2SAT 100
[2024-07-05 12:26] VITALS: BP 159/76; PULSE 58; RESP 16; TEMP 36.2; O2SAT 99
[2024-07-05 16:00] VITALS: TEMP 36.3
--- NOTE | 2024-07-05 17:21 | NURSING ---
OK PER SPEECH THERAPY TO TRY MEDS CRUSHED IN APPLE SAUCE. PT DID WELL AND STATED IT WAS EASIER TO SWALLOW.
[2024-07-05] MEDS: CARBIDOPA/LEVODOPA CR 50/200 Tablet PO (21:13)
[2024-07-05 21:16] VITALS: BP 183/81; PULSE 73
[2024-07-06] MEDS: Acetaminophen 500 MG Tablet 1000 MG PO ×3 (05:22→19:52)
[2024-07-06] MEDS: Carbidopa/Levodopa 25/100 Tablet PO ×4 (05:22→16:59)
[2024-07-06 05:45] LABS: Absolute Lymphocyte Count 1.25 X10^3/uL (0.83-4.51); Basophil# 0.03 X10^3/uL; Basophil% 0.5 % (0-1); Eosinophil# 0.18 X10^3/uL; Eosinophils% 2.9 % (0-5); Hemoglobin 12.8 g/dL (12.0-15.0); Lymphocyte # 1.25 X10^3/ul (0.83-4.51); Lymphocyte % 20.2 % (19-41); Mean Corpuscular Volume 90.7 fL (81-99); Monocyte% 11.3 % (0-10); NRBC Flagged by Analyzer 0 % (0-5); Neutrophil # 3.99 X10^3/uL (2.7-7.7); Neutrophil % 64.5 % (47-70); Platelet Count 249 K/mm3 (150-450); RBC Distribution Width CV 14.1 % (11.6-14.6); RBC Distribution Width SD 46.5 fl (35.1-43.9); Red Blood Count 4.41 M/mm3 (4.2-5.4); White Blood Count 6.2 K/mm3 (4.4-11.0)
[2024-07-06 06:17] LABS: Anion Gap 7 (5-15); BUN 20 mg/dL (7-18); Chloride 105 mmol/L (98-107); Creatinine, Serum 0.59 mg/dL (0.55-1.02); EST Glomerular Filtration Rate 103 mL/min (>60); Est Glom Filt Rate - Afr Amer 124 mL/min (>60); Estimated Creatinine Clearance 40.94 ml/min; Glucose 76 mg/dL (74-106); Potassium 4.3 mmol/L (3.5-5.1); Sodium Level 140 mmol/L (136-145)
[2024-07-06] MEDS: Losartan Potassium 100 MG Tablet PO (09:28)
[2024-07-06 09:29] VITALS: BP 143/65; PULSE 61
[2024-07-06] MEDS: Nystatin Powder 15gm Bottle 1 APPLIC TOPICAL ×2 (09:29→20:05)
[2024-07-06] MEDS: Metoprolol Tartrate 50 MG Tablet PO ×2 (09:29→19:57)
[2024-07-06] MEDS: Senna/Docusate Sodium 1 Tablet 2 TABLET PO ×2 (09:30→19:58)
[2024-07-06] MEDS: Amantadine 100 MG Capsule PO ×2 (09:31→19:53)
[2024-07-06] MEDS: Menthol/Lanolin/Calamine/Znox 113 GM Tube 1 APPLIC TOPICAL ×2 (09:31→20:06)
[2024-07-06 09:39] VITALS: BP 143/65; PULSE 61; RESP 16; O2SAT 98
[2024-07-06 14:49] VITALS: TEMP 36.3
[2024-07-06 19:57] VITALS: PULSE 68
[2024-07-06] MEDS: CARBIDOPA/LEVODOPA CR 50/200 Tablet PO (19:58)
[2024-07-07] MEDS: Carbidopa/Levodopa 25/100 Tablet PO ×4 (05:55→18:27)
[2024-07-07] MEDS: Acetaminophen 500 MG Tablet 1000 MG PO ×3 (06:00→21:55)
[2024-07-07 08:30] VITALS: BP 136/80; PULSE 63; RESP 16; TEMP 36.5; O2SAT 100
[2024-07-07 08:33] VITALS: PULSE 63
[2024-07-07] MEDS: Losartan Potassium 100 MG Tablet PO (08:33)
[2024-07-07] MEDS: Menthol/Lanolin/Calamine/Znox 113 GM Tube 1 APPLIC TOPICAL ×2 (08:33→21:55)
[2024-07-07] MEDS: Metoprolol Tartrate 50 MG Tablet PO ×2 (08:33→21:57)
[2024-07-07] MEDS: Polyethylene Glycol 3350 17 GM PACKET PO (08:33)
[2024-07-07] MEDS: Senna/Docusate Sodium 1 Tablet 2 TABLET PO ×2 (08:34→21:56)
[2024-07-07] MEDS: Amantadine 100 MG Capsule PO ×2 (08:34→21:56)
[2024-07-07] MEDS: Nystatin Powder 15gm Bottle 1 APPLIC TOPICAL ×2 (08:34→21:55)
--- NOTE | 2024-07-07 08:43 | CASEMGMT ---
Addendum entered by Joan Martinez 07/07/24 14:37: Adding ST to [facility]HC order Addendum entered by Joan Martinez 07/07/24 14:29: SW phoned son again. Spoke to son explaining insurance approved with NRD 07/11 and pt is wishing to DC. Pt has progressed well since admission. Offered to set DC fpr 07/11. Son agreeable. Inquired about transport. Son prefers w/c and accepting of any financial cost. SW explained [facility], the agency of choice from [facility], however, offered son if he has a different preference and offered list of additional options. Son denied and agreeable to [facility]. SW to coordinate needs. SW updated IDT. Updated Merlin at [facility], who is in agreement with DC. Referred to [facility] via [facility]. Scheduled [facility] for w/c transport at 1100. Plan: DC 07/11 to [facility], [facility] PT/OT Joan ROY Original Note: Social Work Insurance approved with NRD 07/11. Pt expressed wishes to DC. IDT agreeable to transition to [place]. ALLEY left VM with sonManan to discuss. Joan ROY
--- NOTE | 2024-07-07 14:11 | DS.PCM_ITS ---
Providers Date of Admission: 06/14/24 Primary Care Physician: Dr. Colt Grimes MD Reason For Visit: PELVIC FRACTURE Diagnosis Discharge Diagnosis (1) Debility: Status: Acute Code(s): R53.81 - Other malaise (2) Pelvis fracture, right: Status: Acute Code(s): S32.9XXA - Fracture of unspecified parts of lumbosacral spine and pelvis, initial encounter for closed fracture (3) Sacral fracture: Status: Acute Code(s): S32.10XA - Unspecified fracture of sacrum, initial encounter for closed fracture (4) Urinary tract infection: Status: Acute Code(s): N39.0 - Urinary tract infection, site not specified (5) Vitamin D deficiency: Status: Acute Code(s): E55.9 - Vitamin D deficiency, unspecified (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 Coli UTI, Vitamin D deficiency, admitted to TCU with debility, here for rehabilitation, strengthening, prior to discharge home alone. * Debility - PT/OT. * Cognition - ST. * Pain - Tylenol 1000mg q8, Oxycodone 5mg q4 prn pain (5-10). * Bowel - Miralax 17gm daily, senna/colace 1 tablet bid, MOM 30mL daily thru 06/18/2024. * Adult immunization - Administer pneumonia vaccine, covid vaccine, flu vaccine as appropriate. * DVT prophylaxis - Lovenox 30mg sc daily. * Parkinson Disease - Amantadine 100mg bid, Sinemet 25/100mg 2.5 tablets 4x/day, Sinemet 50/200mg 1 tablet qhs. Resident confused, consider Lewy body disease. * E. Coli UTI - Keflex 250mg po q12 thru 06/21/2024. * Vitamin D deficiency - D 1.25mg per week thru 07/31/2024. * Hypertension - Losartan 25mg daily. Medications at Discharge Home Medications amantadine HCl 100 mg capsule 100 mg PO BID Parkinsons 06/14/24 carbidopa 25 mg-levodopa 100 mg tablet 2.5 tab PO 0700,1100,1500,1900 Parkinsons 06/14/24 carbidopa ER 50 mg-levodopa 200 mg tablet,extended release 1 tab PO QHS Parkinsons 06/14/24 cholecalciferol (vitamin D3) 1,250 mcg (50,000 unit) capsule 1,250 mcg PO QWEEK Supplement 06/14/24 acetaminophen 500 mg tablet 1,000 mg (2 x 500 mg) PO Q8 #0 tabs 07/07/24 losartan 100 mg tablet 100 mg PO DAILY #0 tabs 07/07/24 menthol 0.44 %-zinc oxide 20.6 % topical ointment (Calmoseptine) 1 applic topical BID #0 grams 07/07/24 metoprolol tartrate 50 mg tablet 50 mg PO BID #0 tabs 07/07/24 nystatin 100,000 unit/gram topical powder (Nyamyc) 1 applic topical BID #0 grams 07/07/24 Hospital Course Operations None Procedures None Summary of Care Provided Minutes Spent on Discharge: 35 Hospital Course: 88 year old female with below past medical history hospitalized for right pelvis fracture, sacral ala fracture, treated non-surgically, complicated by E. Coli UTI, Vitamin D deficiency, admitted to TCU with debility, here for rehabilitation, strengthening, prior to discharge home alone. Discharge to [facility] 07/11/2024, [facility] PT/OT. Physical Exam Const alert General Appearance: cooperative HEENT normocephalic Eyes PERRL and EOMs intact bilaterally Neck supple, no JVD and no carotid bruits Resp normal respiratory effort, normal air movement and clear to auscultation bilaterally Cardio regular rate and regular rhythm GI normal to inspection, nondistended, normoactive bowel sounds, non-tender and non-distended Extremity normal capillary refill General Extremity: Negative for edema Skin no rashes or lesions noted General Skin Exam: no breakdown Psych affect normal Appearance: appropriate Medical Records Data Medical Nutrition Assessment Dietitian: Malnutrition Criteria Met Start: 07/05/24 13:57 Freq: Status: Active Protocol: Document 07/05/24 13:57 SLA (Rec: 07/05/24 13:57 SLA [id number]) Nutrition Malnutrition Evidence of Yes Malnutrition Exists Evidenced By Suboptimal Energy Intake (Severe),Physical Changes ( Moderate) Intake Problem Inadequate Oral Intake Status Inactive Problem Clinical Problem Acute Disease or Injury Related Malnutrition Etiology related to recent injury /advanced age and inadequate energy intake Signs/Symptoms as evidenced by PO meeting avg ~50% of estimated nutrition needs x >3 wks and fat/muscle wasting throughout body; BMI 16.6 Status Active Problem Recommendation Dietitian Continue regular diet. Recommendations/ Continue 120ml ensure plus high protein TID with meals. Changes Will monitor weight trends - wt gain desirable. Rec consider appetite stimulant to help encourage increased po intake at meals. May need to consider more aggressive nutrition interventions if po intake continues to fail and/or continued wt loss. Weight / BMI Weight Weight: 52.345 kg Body Mass Index (BMI) 16.5 ABG / Lab / Microbiology Data 07/06/24 05:18 07/06/24 05:18 Microbiology: Microbiology 07/05/24 06:10 Nasal Secretion SARS-CoV-2 Antigen (Rapid) - Final 06/28/24 06:24 Nasal Secretion SARS-CoV-2 Antigen (Rapid) - Final D/C Instructions Discharge Diet: No restrictions Discharge Activity: Return to Normal Activity, May Shower and Use Walker Weight Bearing Status: Weight bearing as tolerated Call your doctor if you observe: Fever of 101 or Higher, Inability to urinate, Inability to have a bowel movement, Shortness of breath, Dizziness, Fainting spells, Swelling in the ankles, Chest pain and Uncontrolled pain DC O2, CPAP, BIPAP Needs Home O2 Discharge instructions: No Additional Instructions: Discharge to [facility] 07/11/2024, [facility] PT/OT. Please Follow Up With: Martha Corona When: As scheduled. Meaningful Use Info Meaningful Use Meaningful Use Diagnoses (Choose all that apply): None applicable Ischemic Stroke Statin Dosing Therapy Reference: STATIN DOSE THERAPY REFERENCE: * Patients > 75 years receive moderate or high dose statin therapy. * Patients 75 years or YOUNGER should receive HIGH intensity statin dose unless contraindicated. You will be required to document reason for non-treatment if statin daily dose does not meet guidelines. HIGH DOSE STATIN THERAPY DAILY Atorvastatin > than or = to 40 mg Rosuvastatin > than or = to 20 mg Amlodipine + Atorvastatin > than or = to 2.5/40 mg Ezetimibe + Simvastatin 10/80 mg Simvastatin 80mg Discharge Plan Admission Admit Date/Time: 06/14/24 18:17 Primary Reason for Your Visit: Debility. Attending Provider: Nakul Chow Chi Primary Care Provider: Colt Grimes Instructions Additional Instructions / Restrictions: Discharge to [facility] 07/11/2024, [facility] PT/OT. Discharge Orders/Prescriptions Prescriptions: New acetaminophen 500 mg Tablet 1,000 mg PO Q8 Qty: 0 0RF metoprolol tartrate 50 mg Tablet 50 mg PO BID Qty: 0 0RF nystatin [Nyamyc] 100,000 unit/gram Powder 1 applic topical BID Qty: 0 0RF Protocol: *Topical Application Instructions APPLICATION INSTRUCTIONS: groin losartan 100 mg Tablet 100 mg PO DAILY Qty: 0 0RF menthol-zinc oxide [Calmoseptine] 0.44-20.6 % Ointment 1 applic topical BID Qty: 0 0RF Protocol: *Topical Application Instructions APPLICATION INSTRUCTIONS: coccyx/bilat buttocks redness Continued amantadine HCl 100 mg capsule 100 mg PO BID Patient Comments: [NO ORIGINAL SIG] carbidopa-levodopa 25-100 mg tablet 2.5 tab PO 0700,1100,1500,1900 Patient Comments: [NO ORIGINAL SIG] Rx Instructions: Take at 0700, 1100, 1500, and 1900 carbidopa-levodopa 50-200 mg tablet extended release 1 tab PO QHS cholecalciferol (vitamin D3) 1,250 mcg (50,000 unit) capsule 1,250 mcg PO QWEEK Discontinued acetaminophen 325 mg capsule 650 mg PO Q6H PRN (Reason: pain 1-4) cephalexin 250 mg capsule 250 mg PO Q12H losartan 25 mg tablet 25 mg PO DAILY magnesium hydroxide 400 mg/5 mL suspension 30 ml PO DAILY oxycodone 5 mg tablet 5 mg PO Q4H PRN (Reason: Pain 5-10) polyethylene glycol 3350 [Miralax] 17 gram/dose powder 17 g PO DAILY Referrals / Follow Up: Colt Grimes MD [Primary Care Provider] - Disposition Disposition (needs filled in before D/C Order can be placed): Assisted Living
[2024-07-07 21:57] VITALS: PULSE 68
[2024-07-07] MEDS: CARBIDOPA/LEVODOPA CR 50/200 Tablet PO (21:58)
[2024-07-08] MEDS: Carbidopa/Levodopa 25/100 Tablet PO ×4 (05:40→17:16)
[2024-07-08] MEDS: Acetaminophen 500 MG Tablet 1000 MG PO ×3 (05:40→20:58)
[2024-07-08 07:59] VITALS: PULSE 62
[2024-07-08] MEDS: Amantadine 100 MG Capsule PO ×2 (07:59→20:57)
[2024-07-08] MEDS: Menthol/Lanolin/Calamine/Znox 113 GM Tube 1 APPLIC TOPICAL ×2 (07:59→21:00)
[2024-07-08] MEDS: Senna/Docusate Sodium 1 Tablet 2 TABLET PO (07:59)
[2024-07-08] MEDS: Nystatin Powder 15gm Bottle 1 APPLIC TOPICAL ×2 (07:59→21:00)
[2024-07-08] MEDS: Metoprolol Tartrate 50 MG Tablet PO ×2 (07:59→20:56)
[2024-07-08] MEDS: Polyethylene Glycol 3350 17 GM PACKET PO (07:59)
[2024-07-08] MEDS: Losartan Potassium 100 MG Tablet PO (07:59)
[2024-07-08 10:21] VITALS: BP 153/79; PULSE 62; RESP 18; TEMP 36.6; O2SAT 97
[2024-07-08 20:56] VITALS: BP 174/87; PULSE 66
[2024-07-08] MEDS: CARBIDOPA/LEVODOPA CR 50/200 Tablet PO (20:57)
[2024-07-08 22:30] VITALS: BP 158/78; PULSE 66
[2024-07-09] MEDS: Acetaminophen 500 MG Tablet 1000 MG PO ×3 (05:09→22:30)
[2024-07-09] MEDS: Carbidopa/Levodopa 25/100 Tablet PO ×4 (05:10→17:29)
[2024-07-09 07:43] VITALS: PULSE 61
[2024-07-09] MEDS: Losartan Potassium 100 MG Tablet PO (07:43)
[2024-07-09] MEDS: Metoprolol Tartrate 50 MG Tablet PO ×2 (07:43→22:30)
[2024-07-09] MEDS: Senna/Docusate Sodium 1 Tablet 2 TABLET PO (07:43)
[2024-07-09] MEDS: Polyethylene Glycol 3350 17 GM PACKET PO (07:43)
[2024-07-09] MEDS: Nystatin Powder 15gm Bottle 1 APPLIC TOPICAL ×2 (07:44→22:30)
[2024-07-09] MEDS: Menthol/Lanolin/Calamine/Znox 113 GM Tube 1 APPLIC TOPICAL ×2 (07:44→22:30)
[2024-07-09] MEDS: Amantadine 100 MG Capsule PO ×2 (07:44→22:30)
[2024-07-09 10:06] VITALS: BP 156/80; PULSE 61; RESP 16; TEMP 36.7; O2SAT 98
[2024-07-09] MEDS: Magnesium Citrate 300 ML PO (10:57)
[2024-07-09 22:30] VITALS: BP 164/83; PULSE 74
[2024-07-09] MEDS: CARBIDOPA/LEVODOPA CR 50/200 Tablet PO (22:30)
[2024-07-10] MEDS: Carbidopa/Levodopa 25/100 Tablet PO ×4 (05:32→18:09)
[2024-07-10] MEDS: Acetaminophen 500 MG Tablet 1000 MG PO ×3 (05:33→20:57)
[2024-07-10 08:00] VITALS: BP 155/71; PULSE 61; RESP 18; TEMP 36.8; O2SAT 94
[2024-07-10] MEDS: Losartan Potassium 100 MG Tablet PO (08:01)
[2024-07-10] MEDS: Menthol/Lanolin/Calamine/Znox 113 GM Tube 1 APPLIC TOPICAL ×2 (08:01→20:54)
[2024-07-10 08:02] VITALS: BP 155/71; PULSE 61
[2024-07-10] MEDS: Metoprolol Tartrate 50 MG Tablet PO ×2 (08:02→21:01)
[2024-07-10] MEDS: Nystatin Powder 15gm Bottle 1 APPLIC TOPICAL ×2 (08:02→20:55)
[2024-07-10] MEDS: Amantadine 100 MG Capsule PO ×2 (08:02→20:56)
[2024-07-10] MEDS: Polyethylene Glycol 3350 17 GM PACKET PO (08:02)
[2024-07-10] MEDS: Senna/Docusate Sodium 1 Tablet 2 TABLET PO (08:02)
--- NOTE | 2024-07-10 11:16 | CASEMGMT ---
Addendum entered by Joan Martinez 07/10/24 14:06: [facility] can accept. DC orders sent. Original Note: Social Work SW followed up with [facility]. They do not provide ST. SW inquired to Merlin at [facility] for additional [facility] agencies. Merlin provided [facility]. SW referred via [facility]. 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
[2024-07-10] MEDS: Ergocalciferol 1.25 MG (50, 000 UNIT) Capsule PO (18:09)
[2024-07-10] MEDS: CARBIDOPA/LEVODOPA CR 50/200 Tablet PO (20:57)
[2024-07-10 21:01] VITALS: BP 148/61; PULSE 69
[2024-07-11] MEDS: Carbidopa/Levodopa 25/100 Tablet PO ×2 (06:06→08:58)
[2024-07-11] MEDS: Acetaminophen 500 MG Tablet 1000 MG PO (06:06)
[2024-07-11 06:08] VITALS: PULSE 72; O2SAT 96
[2024-07-11 08:00] VITALS: BP 160/78; PULSE 68; RESP 16; TEMP 37.2; O2SAT 97
[2024-07-11] MEDS: Menthol/Lanolin/Calamine/Znox 113 GM Tube 1 APPLIC TOPICAL (08:48)
[2024-07-11] MEDS: Nystatin Powder 15gm Bottle 1 APPLIC TOPICAL (08:49)
[2024-07-11 08:50] VITALS: BP 160/78; PULSE 68
[2024-07-11] MEDS: Metoprolol Tartrate 50 MG Tablet PO (08:50)
[2024-07-11] MEDS: Losartan Potassium 100 MG Tablet PO (08:51)
[2024-07-11 08:56] VITALS: BP 160/78; PULSE 68; RESP 16; TEMP 37.2; O2SAT 97
[2024-07-11] MEDS: Amantadine 100 MG Capsule PO (08:59)
--- NOTE | 2024-07-11 10:11 | NURSING ---
PT LEFT BY COT TO [facility] IN [place] AT 1010. SON WITH PT. TRIED CALLING THE FACILITY TO GIVE REPORT AND WAS A NON WORKING NUMBER, WAS GOGGLED AND WAS SAME NUMBER. SON ALSO TRIED CALLING AND STILL NON WORKING NUMBER. TOLD [facility] TO HAVE [facility] CALL IF THEY WANT REPORT. RN AWARE
--- NOTE | 2024-07-11 11:08 | CASEMGMT ---
Social Work SW completed BIMS () and PHQ-2 () for MDS assessment. 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
== END 2024-07-11 10:10 | disposition home health service (06) | DRG 560 ==
PROVIDERS: Admitting Provider Family Medicine Geriatric Medicine; PCP Family Medicine; Visit Provider Family Medicine Geriatric Medicine
DX: S32.10XD Unspecified fracture of sacrum, subsequent encounter for fracture with routine healing (principal); N39.0 Urinary tract infection, site not specified; E44.1 Mild protein-calorie malnutrition; Z68.1 Body mass index [BMI] 19.9 or less, adult; F32.A Depression, unspecified; Q85.00 Neurofibromatosis, unspecified; E55.9 Vitamin D deficiency, unspecified; B96.20 Unspecified Escherichia coli [E. coli] as the cause of diseases classified elsewhere; G20.A1 Parkinson's disease without dyskinesia, without mention of fluctuations; I10 Essential (primary) hypertension; G62.9 Polyneuropathy, unspecified; W19.XXXD Unspecified fall, subsequent encounter; S32.9XXD Fracture of unspecified parts of lumbosacral spine and pelvis, subsequent encounter for fracture with routine healing; Z79.899 Other long term (current) drug therapy; Z23 Encounter for immunization
CPT/HCPCS: 36415; 74018; 80048; 82962; 85025; 87811; 90662; 92507; 92523; 92526; 92610; 97110; 97116; 97129; 97130; 97150; 97162; 97166; 97530; 97535; 97802